=== PATIENT | male | born 1995 | race Caucasian/White ===

== ENCOUNTER 2021-02-19 19:04 | Emergency (ER) | payer OTHER, SELFPAY ==
--- NOTE | ~2021-02-19 | XR_ITS ---
XR foot LT min 3V DATE: 02/19/2021 19:35 INDICATION: Stepped on rock; pain TECHNIQUE: 4 views COMPARISON: None FINDINGS: There is a virtually nondisplaced fracture at the neck of the third metatarsal bone. No other fracture or dislocation is detected. IMPRESSION: Virtually nondisplaced right third metatarsal neck fracture Reviewed, dictated and finalized at location A.
[2021-02-19 19:21] VITALS: BP 122/74; PULSE 99; RESP 18; TEMP 36.9; O2SAT 100
--- NOTE | 2021-02-19 19:53 | ED.LOWEXIN ---
HPI - Extremity Injury (Lower) General Chief Complaint: Extremity Injury, Lower Stated Complaint: Lt Foot pain Time Seen by Provider: 02/19/21 19:38 Source: patient and RN notes reviewed Mode of arrival: ambulatory Limitations: no limitations History of Present Illness HPI Narrative: Patient presents today complaining of a left foot injury. 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 He was coming down a hill and stepped on a rock that was sticking out of some grass on the ball of his foot, causing a shooting pain up his foot and lower leg. He was wearing tennis shoes at the time. Currently rates his pain 4/10, which increases with weightbearing. He has tried no interventions or medications prior to arrival. Reports some numbness to his toes and denies tingling. States pain to the ball of the foot and the dorsum. MD complaint: foot injury Related Data Allergies Allergy/AdvReac Type Severity Reaction Status Date / Time No Known Allergies Allergy Verified 02/19/21 19:20 Review of Systems Review of Systems: Narrative: CONSTITUTIONAL: Denies body aches, fever, chills, or sweats. EYES: Denies visual changes, redness, or discharge. ENT: Denies rhinorrhea, congestion, sore throat, or otalgia. CARDIOVASCULAR: Denies chest pain, palpitations, or edema. RESPIRATORY: Denies cough or dyspnea. GASTROINTESTINAL: Denies abdominal pain, nausea, vomiting, or diarrhea. GENITOURINARY: Denies dysuria or hematuria. SKIN: Denies rash, itching, or wounds. MUSCULOSKELETAL: Denies back pain, or myalgia. + Left foot pain NEUROLOGIC: Denies headache, numbness, tingling, or weakness. PSYCH: Denies depression or anxiety. PMFSH Social History Social History Gender identity (if verbalized by the patient): Male Comments At time of signature, I have reviewed and agree with nursing past medical, surgical, social and family history unless otherwise noted. Please see nursing chart for further information. There is no relevant family history pertinent to the presenting complaint Exam Narrative: Exam Narrative: GENERAL: Well-appearing, well-nourished, and in no acute distress. HEAD: Normocephalic, atraumatic. EYES: EOMI. No redness or drainage. Conjunctivae normal. ENT: Mucous membranes pink and moist. NECK: Normal AROM. CHEST: No respiratory distress. EXTREMITIES: Left foot: Tenderness to metatarsals 2 through 4 on the plantar and dorsal aspects. No edema or erythema noted. No ecchymosis noted. Distal sensation intact. Capillary refill normal. Pedal pulse normal. Pain to the metatarsals with movement of the toes 2 through 4. SKIN: Warm, dry, no rash. Capillary refill normal. Normal skin turgor. NEURO: No focal deficits. Alert and oriented x3. Gait steady. PSYCH: Normal affect. No signs of depression or anxiety. Course Vital Signs Vital signs: Vital Signs Temperature 98.4 F 02/19/21 19:21 Pulse Rate 99 02/19/21 19:21 Respiratory Rate 18 02/19/21 19:21 Blood Pressure 122/74 02/19/21 19:21 Pulse Oximetry 100 02/19/21 19:21 Temperature 98.4 F 02/19/21 19:21 Pulse Rate 99 02/19/21 19:21 Respiratory Rate 18 02/19/21 19:21 Blood Pressure 122/74 02/19/21 19:21 Pulse Oximetry 100 02/19/21 19:21 Reviewed. Pt has been instructed to follow up with his PCP regarding his elevated blood pressure today. Procedures Orthopedic Splinting/Casting Injury #1: Splinting/Casting Date: 02/19/21 Splinting/Casting Time: 19:56 Side: left Lower Extremity Injury Location: foot Splint: customized in ED OCL: short leg Pre-Procedure Neuro Vascular Exam: normal Post-Procedure Neuro Vascular Exam: normal Other Orthopedic Equipment: crutches Additional Comments: Applied by RN and chance MDM - Extremity Injury (Lower) Differential Diagnosis Differential diagnosis: Likely other (Foot fracture, contusion, sprain) Imaging D
== END 2021-02-19 20:14 | disposition home or self-care (01) ==
PROVIDERS: Emergency Provider Nurse Practitioner
DX: S92.335A Nondisplaced fracture of third metatarsal bone, left foot, initial encounter for closed fracture (principal); W22.8XXA Striking against or struck by other objects, initial encounter
CPT/HCPCS: 29515; 73630; 99214; G0463